=== PATIENT | female | born 1995 | race Asian ===

== ENCOUNTER 2020-08-31 08:25 | Emergency (ER) | payer OTHER ==
[2020-08-31] MEDS ORDERED: predniSONE 20 MG TABLET PO STA (08:36)
[2020-08-31] MEDS ORDERED: diphenhydrAMINE 25 MG CAPSULE PO STA (08:36)
--- NOTE | 2020-08-31 09:30 | ED Physician Documentation ---
History of Present Illness - Stated complaint Stated Complaint: ALLERGIC REACTION - Chief complaint Chief Complaint: Allergic Rx - History obtained from History obtained from: Patient - History of Present Illness Timing: Today Pain level max: 0 Pain level now: 0 - Additonal information Additional information: 25-year-old female presents to the emergency department stating that she has a longstanding history of idiopathic urticaria, angioedema and allergic reactions. She states she has been seen by several [employer] drawer in and diagnosed with "high histamine levels". She is currently on Claritin. This morning had swelling of her lips and urticaria. Denies any possibility of . Nothing makes it better or worse. Received an epinephrine injection at the [facility]. Currently feeling better. No difficulty speaking, swallowing or breathing. Review of Systems Ten Systems: 10 systems reviewed and negative Constitutional: denies: Fever, Chills Nose: denies: Rhinorrhea / runny nose, Congestion Respiratory: denies: Cough, Wheezing GI: denies: Abdominal Pain, Vomiting, Diarrhea Skin: denies: Rash PD PAST MEDICAL HISTORY - Past Medical History Past Medical History: Yes - Present Medications Home Medications: Ambulatory Orders Medication Instructions Recorded Confirmed Loratadine [Claritin] 1 tab PO DAILY 08/31/20 08/31/20 predniSONE [Deltasone] 40 mg PO DAILY #10 tablet 08/31/20 - Allergies Allergies/Adverse Reactions: Allergies Allergy/AdvReac Type Severity Reaction Status Date / Time No Known Drug Allergies Allergy Verified 08/31/20 08:34 - Social History Does the pt smoke?: Yes Smoking Status: Current every day smoker Does the pt drink ETOH?: Yes Does the pt have substance abuse?: No - Immunizations Immunizations are current?: Yes PD ED PE NORMAL - Vitals Vital signs reviewed: Yes - General General: Alert and oriented X 3, No acute distress - HEENT HEENT: Moist mucous membranes, Other (mild swelling of the lips. normal oropharyngeal exam. No stridor. No wheezing. Normal phonation.) - Neck Neck: Supple, no meningeal sign - Cardiac Cardiac: RRR - Respiratory Respiratory: No respiratory distress, Clear bilaterally - Abdomen Abdomen: Soft, Non tender, Non distended - Derm Derm: Warm and dry - Extremities Extremities: No edema - Neuro Neuro: Alert and oriented X 3 Results - Vitals Vitals: Vital Signs - 24 hr 08/31/20 08/31/20 08:25 08:36 Temperature 36.9 C Heart Rate 88 80 Respiratory 16 16 Rate Blood Pressure 134/82 H 131/82 H O2 Saturation 99 99 Oxygen O2 Source Room air PD MEDICAL DECISION MAKING - ED course Complexity details: re-evaluated patient, considered differential, d/w patient, d/w family ED course: Patient was given prednisone and Benadryl in the emergency department. Symptoms resolved. Feels much better. will be home with her today. They will return if she worsens. Will place on prednisone for the next several days. Patient counseled regarding signs and symptoms for which I believe and urgent re-evaluation would be necessary. Patient with good understanding of and agreement to plan and is comfortable going home at this time This document was made in part using voice recognition software. While efforts are made to proofread this document, sound alike and grammatical errors may occur. Departure - Departure Disposition: 01 Home, Self Care Clinical Impression: Allergic urticaria Condition: Good Instructions: ED Allergic Reaction General Other Follow-Up: your,doctor in 1 week [Other] Prescriptions: predniSONE [Deltasone] 40 mg PO DAILY #10 tablet Comments: Use the prednisone as prescribed. Continue your Claritin at home. Return if you worsen.
[2020-08-31 09:52] VITALS: BP 125/76
== END 2020-08-31 09:50 | disposition home or self-care (01) ==
LOC: ED 08:25
DX: L50.0 Allergic urticaria (principal); T78.40XA Allergy, unspecified, initial encounter; F17.200 Nicotine dependence, unspecified, uncomplicated
CPT/HCPCS: 99283; 99284; A9270; J7512